=== PATIENT | male | born 1935 | race Caucasian/White ===

== ENCOUNTER 2017-05-27 15:40 | Outpatient (CLI) | payer MEDICARE ==
[2017-05-27 17:00] LABS: Bilirubin Negative (Negative); Blood, Urine Negative (Negative); Glucose, Urine (Dipstick) Negative (Negative); Ketone, Urine Negative (Negative); Nitrite Negative (Negative); Protein, Urine (Dipstick) Trace mg/dL (Neg-Trace); Urobilinogen 0.2 mg/dL (0.2-1.0)
[2017-05-27 17:02] LABS: #Basophils 0.1 thou/uL (0.0-0.2); #Eosinphils 0.6 thou/uL (0.0-0.7); #Lymphocytes 2.9 thou/uL (1.20-3.40); #Monocytes 1.1 thou/uL (0.11-0.59); #Neutrophils 5.7 thou/uL (1.40-6.50); %Basophils 0.9 % (0.0-1.0); %Eosinophils 6.1 % (0.0-10.0); %Monocytes 10.4 % (0.0-10.0); Bacteria/HPF 1+ HPF (None Seen); Hematocrit 40.9 % (42.0-52.0); Hyaline Casts/LPF 0-3 HYALINE CAST LPF (0-3 Hyaline); Red Blood Cell (RBC) Count 4.48 mill/uL (4.70-6.10); Squamous Epithelial None Seen HPF (0-3); White Blood Cell (WBC) Count 10.5 thou/uL (4.8-10.8)
[2017-05-27 17:06] LABS: RBC/HPF None Seen HPF (0-3)
[2017-05-27 17:07] LABS: Prothrombin Time 14.4 SEC (12.0-14.7)
[2017-05-27 17:08] LABS: PTT 33.3 SEC (22.9-36.1)
[2017-05-27 17:25] LABS: Anion Gap 14 mmol/L (10-20); BUN (Urea Nitrogen) 25 mg/dL (8.4-25.7); Calc. Creatinine Clearance 0 mL/min (70-130); Calcium 9.4 mg/dL (7.8-10.44); Carbon Dioxide 22 mmol/L (23-31); Chloride 110 mmol/L (98-107); Estimated GFR-MDRD 58
--- NOTE | 2017-05-27 19:23 | RAD ---
HISTORY: Preoperative chest radiograph TWO VIEWS CHEST: 05/27/17 PA and lateral views of the chest is obtained on 05/27/17. Comparison made to previous exam of 11/18/05. Two views chest demonstrates a dual lead intracardiac pacing device. Cardiomegaly is seen. Calcificat ion of the aorta is noted. No evidence of effusions, pneumonia, or pneumothorax seen. IMPRESSION: Cardiomegaly. POS: [facility]
== END 2017-05-27 15:41 | disposition home or self-care (01) ==
LOC: LABBT 15:40
PROVIDERS: ATTEND Orthopaedic Surgery
DX: Z01.818 Encounter for other preprocedural examination (principal); T84.59XA Infection and inflammatory reaction due to other internal joint prosthesis, initial encounter
CPT/HCPCS: 71020; 80048; 81001; 85025; 85610; 85730; 86850; 86900; 86901; 87081

== ENCOUNTER 2017-05-27 16:00 | Inpatient (IN) | payer MEDICARE ==
[2017-05-27 15:51] VITALS: BMI 35.9
[2017-05-30] MEDS ORDERED: Tobramycin Sulfate 1.2 GM VIAL ONE (07:58)
[2017-05-30] MEDS ORDERED: EPINEPHrine 1 MG/ML AMP ONE (08:00)
[2017-05-30] MEDS ORDERED: Dexamethasone 4 mg/ml Vial ONE (08:01)
[2017-05-30] MEDS ORDERED: Fentanyl 100 MCG/2 ML VIAL ONE ×3 (08:10→13:07)
[2017-05-30] MEDS ORDERED: Midazolam HCl 2 mg/2 ml Vial ONE (08:10)
[2017-05-30] MEDS ORDERED: Tranexamic Acid 1,000 MG/100 ML BAG ONE (08:40)
[2017-05-30] MEDS ORDERED: Piperacillin/Tazobactam 3.375 GM in Sodium Chloride 0.9% 100 ML IVPB SCH (09:45)
[2017-05-30] MEDS ORDERED: Ondansetron HCl/PF 4 MG/2 ML Vial IVP PRN ×2 (11:23→11:29)
[2017-05-30] MEDS ORDERED: Promethazine HCl 25 MG/ML VIAL SLOW IVP PRN (11:23)
[2017-05-30] MEDS ORDERED: Promethazine HCl 25 MG/ML VIAL IM PRN ×2 (11:23→11:29)
[2017-05-30] MEDS ORDERED: diphenhydrAMINE 25 MG CAP PO PRN (11:29)
[2017-05-30] MEDS ORDERED: Fentanyl 100 MCG/2 ML VIAL SLOW IVP PRN ×2 (11:29)
[2017-05-30] MEDS ORDERED: Zolpidem Tartrate 5 MG TAB PO PRN (11:29)
[2017-05-30] MEDS ORDERED: HYDROcodone/Acetaminophen 10/325 mg Tablet PO PRN (11:29)
[2017-05-30] MEDS ORDERED: Acetaminophen 325 MG TAB PO PRN (11:29)
[2017-05-30] MEDS ORDERED: Tranexamic Acid 1,000 MG in Sodium Chloride 0.9% 100 ML IVPB SCH (11:30)
[2017-05-30] MEDS ORDERED: HYDROmorphone 0.5 MG/0.5 ML SYRINGE ONE (13:06)
[2017-05-30] MEDS ORDERED: Bupivacaine HCl 0.5%/Epinephrine 1:200,000/PF 30 ml Vial ONE (14:56)
[2017-05-30] MEDS ORDERED: Bupivacaine PF 0.5% 30 ML VIAL ONE (14:56)
[2017-05-30] MEDS: cefTRIAXone\\ROCEPHIN 2 GM in Sodium Chloride 0.9% 100 ML IVPB SCH (15:43)
[2017-05-30] MEDS ORDERED: Ondansetron HCl/PF 4 MG/2 ML Vial ONE (15:50)
[2017-05-30] MEDS ORDERED: Propofol 200 MG/20 ML VIAL ONE (15:50)
[2017-05-30] MEDS ORDERED: ePHEDrine/0.9% NaCl/PF SYRINGE 50 mg/10 ml ONE (15:50)
[2017-05-30] MEDS ORDERED: Dextrose 5% in Water 1,000 ML IV PRN (16:08)
[2017-05-30] MEDS ORDERED: Dextrose 50% Abboject 50 ML SYRINGE SLOW IVP PRN (16:08)
[2017-05-30] MEDS: Dextrose 5 %-0.45 % NaCl 1,000 ML IV SCH ×2 (16:22→21:42)
[2017-05-30] MEDS ORDERED: Non-Formulary Item 1 EACH (Azelastine/Fluticasone [Dymista Nasal Spray] 1 SPRAY) EA NARE SCH (21:00)
[2017-05-30] MEDS ORDERED: Aspirin 325 MG TAB PO SCH (21:00)
[2017-05-30] MEDS: Ferrous Gluconate 324 MG TAB PO SCH (21:38)
[2017-05-30] MEDS: Tamsulosin HCl 0.4 MG CAP PO SCH (21:40)
[2017-05-30] MEDS: Rosuvastatin 20 MG TAB PO SCH (21:40)
[2017-05-30] MEDS: Senokot S 8.6-50 MG TAB PO SCH (21:40)
[2017-05-30] MEDS: Vancomycin HCl 1.25 GM in Sodium Chloride 0.9% 250 ML 250 ML IVPB SCH (21:41)
[2017-05-30] MEDS: Oxybutynin 5 MG TAB PO SCH (21:41)
[2017-05-30] MEDS: Fluticasone Propionate Nasal Spray 16 gm Bottle NASAL SCH (21:42)
[2017-05-30] MEDS: Azelastine 137 MCG/Spray 30 ML NS SCH (21:42)
[2017-05-31 05:30] LABS: Mean Corpuscular HGB CONC 32.3 g/dL (32.0-36.0); Mean Corpuscular Hemoglobin 29.8 pg (27.0-31.0); Mean Corpuscular Volume 92.4 fl (80.0-94.0); Mean Platelet Volume 9.3 fL (7.4-10.4); Platelet Count 118 thou/uL (130-400); RBC Distribution Width 13.2 % (11.5-14.5); Red Blood Cell (RBC) Count 3.68 mill/uL (4.70-6.10); White Blood Cell (WBC) Count 11.7 thou/uL (4.8-10.8)
[2017-05-31 06:01] LABS: Anion Gap 8 mmol/L (10-20); BUN (Urea Nitrogen) 21 mg/dL (8.4-25.7); Calc. Creatinine Clearance 85 mL/min (70-130); Carbon Dioxide 25 mmol/L (23-31); Chloride 111 mmol/L (98-107); Estimated GFR-MDRD 55; Glucose 237 mg/dL (83-110); Magnesium 1.7 mg/dL (1.6-2.6); Potassium 4.3 mmol/L (3.5-5.1); Sodium 140 mmol/L (136-145)
[2017-05-31] MEDS: Dextrose 5 %-0.45 % NaCl 1,000 ML IV SCH ×2 (06:01→17:12)
[2017-05-31] MEDS: Levothyroxine Sodium 75 MCG TAB PO SCH (06:01)
[2017-05-31] MEDS: Vancomycin HCl 1.25 GM in Sodium Chloride 0.9% 250 ML 250 ML IVPB SCH ×2 (08:38→21:03)
[2017-05-31] MEDS: Ferrous Gluconate 324 MG TAB PO SCH ×2 (08:42→20:30)
[2017-05-31] MEDS: Alogliptin 25 MG TAB PO SCH (08:42)
[2017-05-31] MEDS: Senokot S 8.6-50 MG TAB PO SCH ×2 (08:42→20:30)
[2017-05-31] MEDS: Finasteride 5 MG TAB PO SCH (08:43)
[2017-05-31] MEDS: Aspirin 81 mg Enteric Coated Tablet PO SCH (08:43)
[2017-05-31] MEDS: Multivitamin W/ Minerals 1 TAB PO SCH (08:43)
[2017-05-31] MEDS: Calcium Carbonate + Vit D 1 TAB PO SCH (08:43)
[2017-05-31] MEDS ORDERED: Non-Formulary Item 1 EACH (Multivit-Min/Fa/Lycopene/Lut [Centrum Silver] 1 TABLET) PO SCH (09:00)
--- NOTE | 2017-05-31 10:31 | PDOC.PN ---
- Subjective Encounter Start Date: 05/31/17 Encounter Start Time: 09:40 PT sen earlier on rounds. No overnight problems, states he hasnt had anything to eat. No F/C, no N/V/DC, no sweats or chills. no CP or SOB, slept with his CPAP last night 10 point ROS performed and neg for all systems except as per HPI. at bedside, questions answers. - Objective Vital Signs & Weight: Vital Signs (12 hours) Temp Pulse Resp BP Pulse Ox 05/31/17 07:29 98.4 F 60 19 05/31/17 07:20 98 F 64 18 124/66 93 L 05/31/17 04:00 98.4 F 60 19 109/63 92 L 05/31/17 00:00 97.8 F 63 18 131/64 94 L Weight Weight 287 lb I&O: 05/30/17 05/31/17 06/01/17 06:59 06:59 06:59 Intake Total 1440 Output Total 750 Balance 690 Result Diagrams: 05/31/17 04:59 05/31/17 04:59 Additional Labs: Accuchecks 05/31/17 05/30/17 05:13 20:14 POC Glucose 219 H 263 H Phys Exam - Physical Examination Constitutional: NAD HEENT: PERRLA, moist MMs, sclera anicteric, oral pharynx no lesions Neck: no nodes, no JVD, supple, full ROM Respiratory: no wheezing, no rales, no rhonchi, clear to auscultation bilateral Cardiovascular: RRR, no significant murmur, no rub Gastrointestinal: soft, non-tender, no distention, positive bowel sounds Musculoskeletal: pulses present, edema present Neurological: non-focal, normal sensation, moves all 4 limbs Lymphatic: no nodes Psychiatric: normal affect, A&O x 3 Skin: no rash, normal turgor, cap refill <2 seconds Dx/Plan (1) HTN (hypertension) Code(s): I10 - ESSENTIAL (PRIMARY) HYPERTENSION Status: Chronic Qualifiers: Hypertension type: essential hypertension Qualified Code(s): I10 - Essential (primary) hypertension Comment: pt states he had before, BP normal now, not on Rx. CCM and monitor (2) PUD (peptic ulcer disease) Code(s): K27.9 - PEPTIC ULC, SITE UNSP, UNSP AC OR CHR, W/O HEMOR OR PERF Status: Chronic Comment: massive bleed requiring surgical oversew in past. GI prophylaxis (3) DM2 (diabetes mellitus, type 2) Status: Chronic Qualifiers: Diabetes mellitus complication status: without complication Diabetes mellitus halfway insulin use: without halfway use Qualified Code(s): E11.9 - Type 2 diabetes mellitus without complications (4) Infection of prosthetic knee joint Code(s): T84.59XA - INFECT/INFLM REACTION DUE TO OTH INTERNAL JOINT PROSTH, INIT ; Z96.659 - PRESENCE OF UNSPECIFIED ARTIFICIAL KNEE JOINT Status: Acute Qualifiers: Encounter type: initial encounter Qualified Code(s): T84.59XA - Infection and inflammatory reaction due to other internal joint prosthesis, initial encounter; Z96.659 - Presence of unspecified artificial knee joint; Z96.659 - Presence of unspecified artificial knee joint Comment: s/p [address] Magana. Tissue cx, fluid cx, and swab cx sent, all neg overnight. Only fluid Grams Stain positive, revelaing GPC in clusters. Vanc (5) SEVEN (obstructive sleep apnea) Code(s): G47.33 - OBSTRUCTIVE SLEEP APNEA (ADULT) (PEDIATRIC) Status: Chronic Comment: home CPAP (6) Knee arthropathy Code(s): M12.9 - ARTHROPATHY, UNSPECIFIED Status: Acute - Plan cont current plan of care, plan discussed w/ family, continue antibiotics, PT/OT , out of bed/ambulate * .
--- NOTE | 2017-05-31 10:43 | PRG ---
DATE OF SERVICE: 05/31/2017 SUBJECTIVE: Demar is an 82-year-old male, who is postoperative day #1 from a single-stage revision left total knee arthroplasty due to infection. He is doing relatively well. He has very little in the way of complaints. No definitive cultures have returned yet. There is a question of gram-positi ve cocci on microscopy and Gram stain. He has been relatively stable overnight. OBJECTIVE: VITAL SIGNS: Temperature 98.4, pulse 60, respiratory rate is 19, blood pressure is 124/66. GENERAL: He is alert and oriented to person, place, time, and situation, and appropriate and respons charlie to examiner. Pain appears to be under good control. EXTREMITIES: He is neurovascularly intact in left lower extremity. No strike through is noted. LABORATORY EVALUATION: White blood cell count was 11.7, hemoglobin 11.0, hematocrit 34.0. Cultures are still pending definitively. ASSESSMENT: An 82-year-old male postoperative day revision single-stage left total knee arthroplasty due to an infection. PLAN: 1. Continue current management. 2. Dr. Allan' evaluation is pending. 3. Wound care will see the patient later this afternoon for a VAC placement. 4. Follow cultures, treat appropriately.
[2017-05-31] MEDS: cefTRIAXone\\ROCEPHIN 2 GM in Sodium Chloride 0.9% 100 ML IVPB SCH (12:37)
[2017-05-31] MEDS: Fluticasone Propionate Nasal Spray 16 gm Bottle NASAL SCH ×2 (12:38→20:31)
[2017-05-31] MEDS: Azelastine 137 MCG/Spray 30 ML NS SCH ×2 (12:39→20:31)
--- NOTE | 2017-05-31 13:58 | PRG ---
DATE OF SERVICE: 05/31/2017 SUBJECTIVE: Today is postop day #1 after resection and placement of a new total knee, basically a 1- stage revision with cemented implants. Today, he is doing quite well. He has got excellent pain rel ief with his block. He has only a scant drainage today. As ordered, a wound VAC has been placed. M icrobiology shows gram-positive cocci in clusters and cultures are still pending at this time. ASSESSMENT: Chronically infected left total knee. PLAN: At this time is as follows. A wound VAC until the sinus tract closes. IV antibiotics. Discu ssed with Dr. Allan. He is on vancomycin and Zosyn. Also, patient will be switched to a consistent carbohydrate diet. Discussed with Dr. Bañuelos today. A PICC line was ordered by myself, and 2 views of the knee will be obtained for routine documentation purposes while in the department for his PICC line.
--- NOTE | 2017-05-31 14:10 | CON ---
DATE OF CONSULTATION: 05/30/2017 INITIAL INPATIENT CONSULT NOTE TIME OF VISIT: 1500 hours. REQUESTING PHYSICIAN: Dimas Magana M.D. REASON FOR CONSULTATION: Medical management status post revision of left total knee arthroplasty due to infection. Patient has multiple comorbidities including sleep apnea, hypertension, atrial arrhythmias, diabetes, GERD, and BPH. Patient had a knee replacement initially back in 09/2013. He has had issues with skin breakdown and drainage from the same knee and conservative management. He is also referred to Dr. Magana, and was noted to have a skin breakdown and drainage from the wound. Cultures were not obtained prior to admission. The patient was admitted postoperative from left knee hardware removal and replacement and stage I procedure and cultures were sent from the fluid, tissue , and swab at the time of surgery. Postoperatively, he is doing well. Denies any fevers or chills, chest pain or shortness of breath, n o nausea or vomiting, no diarrhea or constipation. PAST MEDICAL HISTORY: 1. Obstructive sleep apnea on CPAP, he did bring his own machine. 2. Hypertension, is under control. 3. Arrhythmias status post ablation x1. He sees Dr. David regularly. 4. Diabetes mellitus type 2. 5. GERD/peptic ulcer disease with a massive GI bleed back in 2003. He states he required 17 units o f blood transfusion. 6. BPH. PAST SURGICAL HISTORY: Includes bilateral cataracts, skin cancer removal, heart ablation, laparoscop ic cholecystectomy, intraoperative cholangiogram back in 09/2015, ulnar nerve transposition in 7, TKA 09/2013. HOME MEDICATIONS: 1. Amoxicillin 2000 mg p.o. prior to dental procedures. 2. Aspirin 81 mg daily. 3. Azelastine fluticasone 20 mg spray 1 spray each naris daily. 4. Calcium plus D3 1500/250 1 tablet daily. 5. Plavix 75 mg daily. 6. Cyanocobalamin 5000 mcg daily. 7. Glucosamine chondroitin 2 tablets daily. 8. Dexlansoprazole 60 mg p.o. at bedtime. 9. Proscar 5 mg p.o. daily. 10. Levothyroxine 75 mcg daily. 11. Centrum Silver 1 tablet daily. 12. Oxybutynin 2 tablets p.o. q.p.m. 13. Crestor 20 mg p.o. at bedtime. 14. Januvia 50 mg p.o. q.a.m. 15. Flomax 0.4 mg p.o. at bedtime. ALLERGIES: NKDA. FAMILY HISTORY: Significant for diabetes, hypertension, and strokes. SOCIAL HISTORY: Negative for habits x3. He is . His accompanies him. REVIEW OF SYSTEMS: A 10-point review of systems was performed and was negative for all other systems except as stated per HPI. PHYSICAL EXAMINATION: VITAL SIGNS: Temperature current 97.5, pulse 68, blood pressure 110/63, respiratory rate 20, satting 93% on 2 liters nasal cannula. GENERAL: He is awake. He is alert. He is oriented x3. He is an obese white male, appears to be in no acute distress. HEENT: Normocephalic, atraumatic. Pupils are equal and reactive bilaterally. Mucous membranes are moist. There is no visible lesion and no thrush. NECK: Supple, without lymphadenopathy, JVD or thyromegaly. LUNGS: Clear to auscultation bilaterally without wheezes, rales or rhonchi. He has no prolonged exp iratory phase. He has good air movement. Symmetrical chest excursion. CARDIOVASCULAR: Normal S1 and S2. No S3 or S4. He has a regular rhythm with a normal rate. He has no murmurs. ABDOMEN: Obese, it is nontender, and nondistended. He has good bowel sounds present. There is no r ebound, rigidity or guarding. EXTREMITIES: There is no cyanosis or clubbing. There is trace bilateral lower extremity edema, more than the left than the right. He has a postop dressing present over his left knee and that is clean , dry, and intact. SKIN: Otherwise, warm, moist, and well perfused. He has no other rashes and no lesions. NEUROLOGIC: Cranial nerves II-XII grossly intact. He has no focal deficits, normal speech, and 5/5 strength. MUSCULOSKELETAL: Other than that left knee shows joints to be normal to inspection. He has no infla mmation or redness and no palpable effusions. LABORATORY DATA: On 05/27/2017 he had a basic metabolic profile that was normal. Creatinine 1.21, p otassium 4.5, glucose 146 and calcium 9.4. Urinalysis that did show greater than 50 white blood cell s, 1+ bacteria and moderate leukocyte esterase. INR 1.1. CBC showed white count of 10.5, hemoglobin 13.1, hematocrit of 40.7 and platelets 153,000. MICROBIOLOGIC DATA: He had knee tissue culture sent with Gram stain that showed white cells and no o rganisms, fluid showed rare gram positive cocci in clusters and white blood cells, swab showed no whi te blood cells, no bacteria. Cultures have been sent. ASSESSMENT AND PLAN: 1. Infected left total knee arthroplasty, late onset and patient had symptoms longer than 2 weeks. The patient had a 1 staged procedure as he was not a good candidate for two stage. This does tend to be truly infected, at least 6-8 weeks of IV antibiotics. C-reactive protein is just over 1, sed rat e was not done and we will add. Would treat for a minimum of 6 weeks. If sed rate and CRP are gay l by then and then convert to p.o. antibiotics, otherwise continue IV antibiotics to complete an 8-we ek course before switching to p.o. 2. After IV is complete, we will treat for 3-6 months with oral antibiotics depending on the identif ication and susceptibilities. 3. Status post 1 stage revision. Postop care per Orthopedics including deep venous thrombosis proph ylaxis. 4. History of obstructive sleep apnea: Continue home continuous positive airway pressure. 5. History of hypertension: The patient states it is controlled and off medications. We will monit or here in the hospital. 6. History of atrial arrhythmia followed by Dr. David. His preop workup revealed nothing abnormal. 7. Diabetes mellitus type 2, glucose 146 on prescreening labs: We will watch his sugars here. 8. Gastroesophageal reflux disease/peptic ulcer disease. We will continue his dexlansoprazole for g astrointestinal prophylaxis. 9. History of BPH on Proscar and Flomax, which we will continue. 10. Hyperlipidemia on Crestor, which can continue. 11. residential monitoring of antibiotics: If he again does start to have an infection, will need mesha g-term IV antibiotics. We will need weekly CBC, CMP, ESR, and CRP and vancomycin if it turns out to need vancomycin for treatment.
--- NOTE | 2017-05-31 15:43 | CON ---
DATE OF CONSULTATION: 05/31/2017 REASON FOR CONSULTATION: Left total knee replacement infection. HISTORY OF PRESENT ILLNESS: An 82-year-old with history of type 2 diabetes, Jaramillo's esophagus, atr ial fibrillation, sick sinus syndrome, pacemaker, and a prior left TKR implant, who developed progres sively worsening pain in the left implant site, and eventually was evaluated by Dr. Magana and had re moval of the left implant and had a functional spacer placed yesterday. The patient currently denies any headaches, visual symptoms, sore throat, odynophagia, dysphagia. No cough or sputum production or chest pain. Moderate pain in the left side. No back pain. No other joint symptoms. 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 PAST SURGICAL HISTORY: Includes appendectomy, tonsillectomy, left knee replacement, and now the archie naresh of the implant, wound VAC placement, duodenostomy. ALLERGIES: None. FAMILY HISTORY: Noncontributory. SOCIAL HISTORY: He used to work for [employer], he is retired, lives in [place], . Never a smo ker. CURRENT MEDICATIONS: Alogliptin, [place], Ecotrin, azelastine, ceftriaxone, fentanyl, insulin, levothy roxine, Zofran, Phenergan, vancomycin, Ambien. PHYSICAL EXAMINATION: VITAL SIGNS: The patient has been afebrile throughout the hospital stay. Blood pressure 119/69, pul se 62, respirations 18, O2 sat 94%. SKIN EXAM: The patient has a left implant site with dressing, which was not removed. Peripheral IV access. No Chow catheter. No lymphadenopathy. HEENT: Ocular movements are conjugate. Oral cavity still with quite a few teeth in place with some decay. No gum disease. NECK: Supple, no jugular venous distention or carotid bruits. LUNGS: Clear to auscultation and percussion. HEART: S1, S2, regular rate. No S3 or S4. ABDOMEN: Soft, not distended, or tender. No ascites. No bladder distention. EXTREMITIES: No other joint inflammatory activity noted. Pulses are 1+ in dorsalis pedis. Plantar responses are flexor. No clonus. NEUROLOGIC: Cognitive function appears to be intact. LABORATORY DATA: White cell count 11.7, hemoglobin 11, MCV 92, platelets 119, and sodium 140, creati nine 1.25, which is a little bit higher than his baseline in 09/2015 when it was 0.98. Microbiology with gram-positive cocci in clusters identified in one sample, and the other sample from the knee, th ere is early growth, but not yet identified. Pathology of surgical specimen pending. ASSESSMENT: Type 2 diabetes with prior implants in left knee with infection, status post removal of the implant and placement of a functional spacer. Waiting on culture results. DISCUSSION: Patient will have a PICC line inserted and plan treatment for 42 days with antimicrobial to be decided once we have the final identification of the organism. Since this is a functional imp lant and will remain in place, plan to continue treatment for 3 months with oral regimen, again to be decided by the susceptibility studies being performed in the organisms isolated from the sample. PI CC line placement and we have discussed potential adverse reactions from the PICC line as well as the antimicrobials including skin rash, diarrhea, kidney, liver, and bone marrow toxicity. The patient and understood and agreed with management and recommendations.
[2017-05-31] MEDS: HYDROcodone/Acetaminophen 10/325 mg Tablet PO PRN (17:03)
[2017-05-31] MEDS: Tamsulosin HCl 0.4 MG CAP PO SCH (20:30)
[2017-05-31] MEDS: Rosuvastatin 20 MG TAB PO SCH (20:30)
[2017-05-31] MEDS: Oxybutynin 5 MG TAB PO SCH (20:30)
[2017-05-31 20:45] LABS: Vancomycin, Trough 17.8 ug/mL
[2017-06-01] MEDS: Dextrose 5 %-0.45 % NaCl 1,000 ML IV SCH ×3 (03:48→23:01)
[2017-06-01 05:11] LABS: Mean Corpuscular HGB CONC 32.4 g/dL (32.0-36.0); Mean Corpuscular Hemoglobin 30.1 pg (27.0-31.0); Mean Corpuscular Volume 93.1 fl (80.0-94.0); Mean Platelet Volume 9.9 fL (7.4-10.4); Platelet Count 103 thou/uL (130-400); RBC Distribution Width 13.3 % (11.5-14.5); Red Blood Cell (RBC) Count 3.64 mill/uL (4.70-6.10); White Blood Cell (WBC) Count 12.6 thou/uL (4.8-10.8)
[2017-06-01] MEDS: Levothyroxine Sodium 75 MCG TAB PO SCH (05:32)
[2017-06-01] MEDS: Vancomycin HCl 1.25 GM in Sodium Chloride 0.9% 250 ML 250 ML IVPB SCH ×2 (08:58→21:02)
[2017-06-01] MEDS: Alogliptin 25 MG TAB PO SCH (09:00)
[2017-06-01] MEDS: Aspirin 81 mg Enteric Coated Tablet PO SCH (09:02)
[2017-06-01] MEDS: Azelastine 137 MCG/Spray 30 ML NS SCH ×2 (09:02→21:02)
[2017-06-01] MEDS: Calcium Carbonate + Vit D 1 TAB PO SCH (09:02)
[2017-06-01] MEDS: Ferrous Gluconate 324 MG TAB PO SCH ×2 (09:02→21:04)
[2017-06-01] MEDS: Finasteride 5 MG TAB PO SCH (09:03)
[2017-06-01] MEDS: Multivitamin W/ Minerals 1 TAB PO SCH (09:03)
[2017-06-01] MEDS: Senokot S 8.6-50 MG TAB PO SCH ×2 (09:03→21:03)
[2017-06-01] MEDS: Fluticasone Propionate Nasal Spray 16 gm Bottle NASAL SCH ×2 (09:04→21:04)
--- NOTE | 2017-06-01 11:11 | PDOC.PN ---
- Subjective Encounter Start Date: 06/01/17 Encounter Start Time: 09:40 Pt getting up with PT. no acute overnight events, no new compalints. Deneis F/C, no N/V/D/C, no CP or sOB. glucoses up, refused SSI with Humalog. seen by ID. plan reviewed. Culture in lab with early growth yesterday afternoon 10 point ROs performed and neg for all systems except as per HPI - Objective MAR Reviewed: Yes Vital Signs & Weight: Vital Signs (12 hours) Temp Pulse Resp BP Pulse Ox 06/01/17 08:00 98.4 F 63 18 133/69 92 L 06/01/17 07:45 98.4 F 63 18 06/01/17 03:43 98.1 F 58 L 16 148/83 H 94 L 05/31/17 23:49 99.4 F 56 L 20 119/73 98 Weight Admit Weight 287 lb Weight 287 lb I&O: 05/31/17 06/01/17 06/02/17 06:59 06:59 06:59 Intake Total 1440 600 240 Output Total 750 800 Balance 690 -200 240 Result Diagrams: 06/01/17 04:04 05/31/17 04:59 Additional Labs: Accuchecks 06/01/17 05/31/17 05/31/17 05:33 20:38 15:42 POC Glucose 171 H 200 H 198 H 05/31/17 12:08 POC Glucose 199 H Radiology Reviewed by me: No EKG Reviewed by me: No Phys Exam - Physical Examination Constitutional: NAD HEENT: PERRLA, moist MMs, sclera anicteric, oral pharynx no lesions Neck: no nodes, no JVD, supple, full ROM Respiratory: no wheezing, no rales, no rhonchi, clear to auscultation bilateral Cardiovascular: RRR, no significant murmur, no rub Gastrointestinal: soft, non-tender, no distention, positive bowel sounds Musculoskeletal: pulses present, edema present Neurological: non-focal, normal sensation, moves all 4 limbs left leg in long splint. Lymphatic: no nodes Psychiatric: normal affect, A&O x 3 Skin: no rash, normal turgor, cap refill <2 seconds Dx/Plan (1) HTN (hypertension) Code(s): I10 - ESSENTIAL (PRIMARY) HYPERTENSION Status: Chronic Qualifiers: Hypertension type: essential hypertension Qualified Code(s): I10 - Essential (primary) hypertension Comment: pt states he had before, BP normal now, not on Rx. CCM and monitor (2) PUD (peptic ulcer disease) Code(s): K27.9 - PEPTIC ULC, SITE UNSP, UNSP AC OR CHR, W/O HEMOR OR PERF Status: Chronic Comment: massive bleed requiring surgical oversew in past. GI prophylaxis (3) DM2 (diabetes mellitus, type 2) Status: Chronic Qualifiers: Diabetes mellitus complication status: without complication Diabetes mellitus terminal carman insulin use: without terminal carman use Qualified Code(s): E11.9 - Type 2 diabetes mellitus without complications Comment: SSI ordered, pt refusing. noted. (4) Infection of prosthetic knee joint Code(s): T84.59XA - INFECT/INFLM REACTION DUE TO OTH INTERNAL JOINT PROSTH, INIT ; Z96.659 - PRESENCE OF UNSPECIFIED ARTIFICIAL KNEE JOINT Status: Acute Qualifiers: Encounter type: initial encounter Qualified Code(s): T84.59XA - Infection and inflammatory reaction due to other internal joint prosthesis, initial encounter; Z96.659 - Presence of unspecified artificial knee joint; Z96.659 - Presence of unspecified artificial knee joint Comment: s/p [address] Magana. Tissue cx, fluid cx, and swab cx sent, one with early growth per Dr Allan. Only fluid Gram Stain positive, revealing GPC in clusters. Vanc (5) SEVEN (obstructive sleep apnea) Code(s): G47.33 - OBSTRUCTIVE SLEEP APNEA (ADULT) (PEDIATRIC) Status: Chronic Comment: home CPAP (6) Knee arthropathy Code(s): M12.9 - ARTHROPATHY, UNSPECIFIED Status: Acute - Plan cont current plan of care, plan discussed w/ family, continue antibiotics, PT/OT , out of bed/ambulate * . tissue cx with broth growth, subculture in process, fluid culture iwth rare growth, subbed out
[2017-06-01] MEDS: cefTRIAXone\\ROCEPHIN 2 GM in Sodium Chloride 0.9% 100 ML IVPB SCH (12:09)
[2017-06-01] MEDS: HYDROcodone/Acetaminophen 10/325 mg Tablet PO PRN (12:57)
[2017-06-01] MEDS: HumaLOG 300 UNITS/3 ML VIAL SC PRN ×3 (12:59→21:25)
[2017-06-01] MEDS: Tamsulosin HCl 0.4 MG CAP PO SCH (21:03)
[2017-06-01] MEDS: Rosuvastatin 20 MG TAB PO SCH (21:03)
[2017-06-01] MEDS: Oxybutynin 5 MG TAB PO SCH (21:03)
[2017-06-02 05:13] LABS: Hemoglobin 10.8 g/dL (14.0-18.0); Mean Corpuscular HGB CONC 32.4 g/dL (32.0-36.0); Mean Corpuscular Hemoglobin 29.8 pg (27.0-31.0); Mean Platelet Volume 9.5 fL (7.4-10.4); Platelet Count 107 thou/uL (130-400); RBC Distribution Width 13.3 % (11.5-14.5); Red Blood Cell (RBC) Count 3.63 mill/uL (4.70-6.10); White Blood Cell (WBC) Count 11.1 thou/uL (4.8-10.8)
[2017-06-02] MEDS: Levothyroxine Sodium 75 MCG TAB PO SCH (05:39)
[2017-06-02] MEDS: HYDROcodone/Acetaminophen 10/325 mg Tablet PO PRN (05:39)
[2017-06-02] MEDS: HumaLOG 300 UNITS/3 ML VIAL SC PRN (07:57)
[2017-06-02] MEDS: Alogliptin 25 MG TAB PO SCH (07:57)
[2017-06-02] MEDS: Calcium Carbonate + Vit D 1 TAB PO SCH (07:58)
[2017-06-02] MEDS: Senokot S 8.6-50 MG TAB PO SCH ×2 (07:58→23:01)
[2017-06-02] MEDS: Finasteride 5 MG TAB PO SCH (07:58)
[2017-06-02] MEDS: Ferrous Gluconate 324 MG TAB PO SCH ×2 (07:58→20:18)
[2017-06-02] MEDS: Aspirin 81 mg Enteric Coated Tablet PO SCH (07:58)
[2017-06-02] MEDS: Multivitamin W/ Minerals 1 TAB PO SCH (07:59)
[2017-06-02] MEDS: Azelastine 137 MCG/Spray 30 ML NS SCH ×2 (07:59→20:23)
[2017-06-02] MEDS: Fluticasone Propionate Nasal Spray 16 gm Bottle NASAL SCH ×3 (07:59→20:23)
[2017-06-02] MEDS: Vancomycin HCl 1.25 GM in Sodium Chloride 0.9% 250 ML 250 ML IVPB SCH ×2 (08:12→09:47)
[2017-06-02 08:52] LABS: Vancomycin, Trough 21.5 ug/mL
[2017-06-02] MEDS: Vancomycin HCl 1 GM in Premix Bag 1 BAG IVPB SCH ×2 (10:44→22:55)
[2017-06-02] MEDS ORDERED: Fleet Enema 133 ML BOT PR SCH (12:30)
--- NOTE | 2017-06-02 13:15 | PDOC.PN ---
- Subjective Encounter Start Date: 06/02/17 Encounter Start Time: 08:50 no events, PICC scheduled for today. awaiting culture results. Looks to be going to [facility] when discharged. ? today no F/C, no N/V/D/C, no CP or SOB. Still refusing SSI 10 point ROS performed and neg for all systems except as per HPI - Objective MAR Reviewed: Yes Vital Signs & Weight: Vital Signs (12 hours) Temp Pulse Resp BP Pulse Ox 06/02/17 11:05 98.8 F 61 20 131/57 L 90 L 06/02/17 07:20 98.7 F 61 12 134/69 91 L 06/02/17 04:00 97.9 F 60 18 137/74 92 L Weight Admit Weight 287 lb Weight 287 lb I&O: 06/01/17 06/02/17 06/03/17 06:59 06:59 06:59 Intake Total 600 2810 Output Total 800 875 Balance -200 1935 Result Diagrams: 06/02/17 04:32 05/31/17 04:59 Additional Labs: Accuchecks 06/02/17 06/02/17 06/01/17 11:02 06:18 21:06 POC Glucose 184 H 203 H 245 H 06/01/17 15:59 POC Glucose 215 H Phys Exam - Physical Examination Constitutional: NAD HEENT: PERRLA, moist MMs, sclera anicteric, oral pharynx no lesions Neck: no nodes, no JVD, supple, full ROM Respiratory: no wheezing, no rales, no rhonchi, clear to auscultation bilateral Cardiovascular: RRR, no significant murmur, no rub Gastrointestinal: soft, non-tender, no distention, positive bowel sounds Musculoskeletal: pulses present, edema present Neurological: non-focal, normal sensation, moves all 4 limbs Lymphatic: no nodes Psychiatric: normal affect, A&O x 3 Skin: no rash, normal turgor, cap refill <2 seconds Dx/Plan (1) HTN (hypertension) Code(s): I10 - ESSENTIAL (PRIMARY) HYPERTENSION Status: Chronic Qualifiers: Hypertension type: essential hypertension Qualified Code(s): I10 - Essential (primary) hypertension Comment: pt states he had before, BP normal now, not on Rx. CCM and monitor (2) PUD (peptic ulcer disease) Code(s): K27.9 - PEPTIC ULC, SITE UNSP, UNSP AC OR CHR, W/O HEMOR OR PERF Status: Chronic Comment: massive bleed requiring surgical oversew in past. GI prophylaxis (3) DM2 (diabetes mellitus, type 2) Status: Chronic Qualifiers: Diabetes mellitus complication status: without complication Diabetes mellitus middle or intermediate school principal insulin use: without middle or intermediate school principal use Qualified Code(s): E11.9 - Type 2 diabetes mellitus without complications Comment: SSI ordered, pt refusing. noted. (4) Infection of prosthetic knee joint Code(s): T84.59XA - INFECT/INFLM REACTION DUE TO OTH INTERNAL JOINT PROSTH, INIT ; Z96.659 - PRESENCE OF UNSPECIFIED ARTIFICIAL KNEE JOINT Status: Acute Qualifiers: Encounter type: initial encounter Qualified Code(s): T84.59XA - Infection and inflammatory reaction due to other internal joint prosthesis, initial encounter; Z96.659 - Presence of unspecified artificial knee joint; Z96.659 - Presence of unspecified artificial knee joint Comment: s/p [address] Magana. Tissue cx, fluid cx, and swab cx sent, one with growth of GPC from tissue. Only fluid Gram Stain positive, revealing GPC in clusters. Vanc (5) SEVEN (obstructive sleep apnea) Code(s): G47.33 - OBSTRUCTIVE SLEEP APNEA (ADULT) (PEDIATRIC) Status: Chronic Comment: home CPAP (6) Knee arthropathy Code(s): M12.9 - ARTHROPATHY, UNSPECIFIED Status: Acute - Plan cont current plan of care, continue antibiotics, PT/OT, social work case manager, out of bed/ambulate * .
[2017-06-02] MEDS: cefTRIAXone\\ROCEPHIN 2 GM in Sodium Chloride 0.9% 100 ML IVPB SCH (16:18)
--- NOTE | 2017-06-02 16:46 | RAD ---
LEFT KNEE TWO VIEWS: History: Left knee replacement. FINDINGS: Post-operative changes are present including a metallic femoral component and lucent tibial component . Joint space is preserved. Soft tissue gas, arterial calcification, and heterotopic calcification ar e apparent. IMPRESSION: 1. Left knee prosthesis is in good radiographic position. POS: [facility]
--- NOTE | 2017-06-02 18:25 | SPC ---
SONOGRAPHIC GUIDED RIGHT UPPER EXTREMITY PICC PLACEMENT: History: Knee infection. Need for long-term antibiotics. FINDINGS: After explaining the procedure and answering all questions the right upper extremity was prepped and draped in the usual sterile fashion. Sterile technique, buffered local anesthesia, sonographic guidan ce and a 22 gauge needle were used to carefully access the right brachial vein. Standard technique wa s then used to place the tip of a 5 [place] single lumen PICC so that the tip lies at the level of the right atrium. The catheter was flushed and secured externally. The patient tolerated the procedure w ell and was returned in unchanged condition. IMPRESSION: Technically successful right upper extremity PICC placement. Catheter is now ready for use. POS: [facility]
[2017-06-02] MEDS: Rosuvastatin 20 MG TAB PO SCH (20:18)
[2017-06-02] MEDS: Tamsulosin HCl 0.4 MG CAP PO SCH (20:18)
[2017-06-02] MEDS: Oxybutynin 5 MG TAB PO SCH (20:18)
[2017-06-02] MEDS: Dextrose 5 %-0.45 % NaCl 1,000 ML IV SCH ×2 (20:20→20:22)
--- NOTE | 2017-06-02 20:23 | PRG ---
DATE OF SERVICE: 05/31/2017 SUBJECTIVE: Having little bit of choking spells from trying to drink fluids and on almost recumbent position, otherwise no chest pain, no abdominal pain, voiding without difficulty. OBJECTIVE: VITAL SIGNS: He is afebrile, blood pressure 170/75, pulse 62, respirations 20 to 22, O2 sat 92%. RESPIRATORY: Coughing intermittently. Faint expiratory wheezing. HEART: S1, S2, regular rate. ABDOMEN: Soft. Not distended. GENITOURINARY: No Chow catheter. EXTREMITIES: A 2+ edema in the left lower extremity. LABORATORY DATA: White cell count 11.1, hemoglobin 10.8, platelets 107,000. Creatinine 1.25, potass ium 4.3, glucose 171. Vancomycin trough 21.5, currently on ceftriaxone and vancomycin. Vancomycin d ose has been adjusted to 1 gram q.12 hours. Microbiology with gram positive cocci retrieved from the knee tissue yet to be fully identified, susceptibility tested. 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 Continue Rocephin and vancomycin, ad just dosage according to the trough level of 15 to 20. Wait on the final identification susceptibili ty profile and eventually probably go on rifampin combination with either vancomycin or cefazolin or Rocephin for 42 days. May remain with his functional spacer indefinitely or have revision depending on patient's and orthopedic surgeon's preference.
[2017-06-03] MEDS: Levothyroxine Sodium 75 MCG TAB PO SCH (05:18)
[2017-06-03 05:29] LABS: Hemoglobin 11.1 g/dL (14.0-18.0); Mean Corpuscular HGB CONC 32.7 g/dL (32.0-36.0); Mean Corpuscular Hemoglobin 29.6 pg (27.0-31.0); Mean Corpuscular Volume 90.6 fl (80.0-94.0); Mean Platelet Volume 9.6 fL (7.4-10.4); Platelet Count 129 thou/uL (130-400); Red Blood Cell (RBC) Count 3.75 mill/uL (4.70-6.10); White Blood Cell (WBC) Count 13.1 thou/uL (4.8-10.8)
[2017-06-03] MEDS: Dextrose 5 %-0.45 % NaCl 1,000 ML IV SCH ×2 (05:31→21:05)
[2017-06-03] MEDS: Fluticasone Propionate Nasal Spray 16 gm Bottle NASAL SCH ×2 (09:26→20:59)
[2017-06-03] MEDS: Calcium Carbonate + Vit D 1 TAB PO SCH (09:33)
[2017-06-03] MEDS: Ferrous Gluconate 324 MG TAB PO SCH ×2 (09:33→20:56)
[2017-06-03] MEDS: Finasteride 5 MG TAB PO SCH (09:33)
[2017-06-03] MEDS: Multivitamin W/ Minerals 1 TAB PO SCH (09:33)
[2017-06-03] MEDS: Senokot S 8.6-50 MG TAB PO SCH ×2 (09:33→20:57)
[2017-06-03] MEDS: Alogliptin 25 MG TAB PO SCH (09:33)
[2017-06-03] MEDS: Aspirin 81 mg Enteric Coated Tablet PO SCH (09:34)
[2017-06-03] MEDS: Azelastine 137 MCG/Spray 30 ML NS SCH ×2 (09:34→20:58)
[2017-06-03] MEDS: HYDROcodone/Acetaminophen 10/325 mg Tablet PO PRN ×2 (09:34→13:54)
[2017-06-03] MEDS: Vancomycin HCl 1 GM in Premix Bag 1 BAG IVPB SCH ×2 (09:35→22:26)
--- NOTE | 2017-06-03 11:28 | PDOC.PN ---
- Subjective Encounter Start Date: 06/03/17 Encounter Start Time: 10:10 PT in bed, has friends visiting, denies F/C,no n/V/d/C, no CP or ADRIANO, feels like he is constantly getting bothered by staff 10 point DOM performed and neg for all systems except as per hPI Cx pending, ID and sensitivities, ID note reviewed. - Objective MAR Reviewed: Yes Vital Signs & Weight: Vital Signs (12 hours) Temp Pulse Resp BP Pulse Ox 06/03/17 07:35 97.8 F 61 18 166/90 H 93 L 06/03/17 04:00 97.6 F 87 20 148/86 H 89 L 06/03/17 00:19 100.4 F H 62 20 132/87 89 L Weight Admit Weight 287 lb Weight 287 lb I&O: 06/02/17 06/03/17 06/04/17 06:59 06:59 06:59 Intake Total 2810 1636 Output Total 875 400 Balance 1935 1236 Result Diagrams: 06/03/17 04:55 05/31/17 04:59 Additional Labs: Accuchecks 06/03/17 06/03/17 06/02/17 11:02 05:22 19:35 POC Glucose 262 H 201 H 200 H 06/02/17 06/02/17 16:05 11:02 POC Glucose 160 H 184 H Radiology Reviewed by me: Yes Phys Exam - Physical Examination Constitutional: NAD HEENT: PERRLA, moist MMs, sclera anicteric, oral pharynx no lesions Neck: no nodes, no JVD, supple, full ROM Respiratory: no wheezing, no rales, no rhonchi, clear to auscultation bilateral Cardiovascular: RRR, no significant murmur, no rub Gastrointestinal: soft, non-tender, no distention, positive bowel sounds Musculoskeletal: pulses present, edema present Neurological: non-focal, normal sensation, moves all 4 limbs Lymphatic: no nodes Psychiatric: normal affect, A&O x 3 Skin: no rash, normal turgor, cap refill <2 seconds Dx/Plan (1) HTN (hypertension) Code(s): I10 - ESSENTIAL (PRIMARY) HYPERTENSION Status: Chronic Qualifiers: Hypertension type: essential hypertension Qualified Code(s): I10 - Essential (primary) hypertension Comment: pt states he had before, BP normal now, not on Rx. CCM and monitor (2) PUD (peptic ulcer disease) Code(s): K27.9 - PEPTIC ULC, SITE UNSP, UNSP AC OR CHR, W/O HEMOR OR PERF Status: Chronic Comment: massive bleed requiring surgical oversew in past. GI prophylaxis (3) DM2 (diabetes mellitus, type 2) Status: Chronic Qualifiers: Diabetes mellitus complication status: without complication Diabetes mellitus data control clerk supervisor insulin use: without senior care use Qualified Code(s): E11.9 - Type 2 diabetes mellitus without complications Comment: SSI ordered, pt refusing. noted. (4) Infection of prosthetic knee joint Code(s): T84.59XA - INFECT/INFLM REACTION DUE TO OTH INTERNAL JOINT PROSTH, INIT ; Z96.659 - PRESENCE OF UNSPECIFIED ARTIFICIAL KNEE JOINT Status: Acute Qualifiers: Encounter type: initial encounter Qualified Code(s): T84.59XA - Infection and inflammatory reaction due to other internal joint prosthesis, initial encounter; Z96.659 - Presence of unspecified artificial knee joint; Z96.659 - Presence of unspecified artificial knee joint Comment: s/p [address] Magana. Tissue cx, fluid cx, and swab cx sent, one with growth of GPC from tissue. Only fluid Gram Stain positive, revealing GPC in clusters. Vanc (5) SEVEN (obstructive sleep apnea) Code(s): G47.33 - OBSTRUCTIVE SLEEP APNEA (ADULT) (PEDIATRIC) Status: Chronic Comment: home CPAP (6) Knee arthropathy Code(s): M12.9 - ARTHROPATHY, UNSPECIFIED Status: Acute - Plan * .
[2017-06-03] MEDS: HumaLOG 300 UNITS/3 ML VIAL SC PRN (12:35)
[2017-06-03] MEDS: cefTRIAXone\\ROCEPHIN 2 GM in Sodium Chloride 0.9% 100 ML IVPB SCH (13:56)
[2017-06-03] MEDS: Oxybutynin 5 MG TAB PO SCH (20:56)
[2017-06-03] MEDS: Rosuvastatin 20 MG TAB PO SCH (20:56)
[2017-06-03] MEDS: Tamsulosin HCl 0.4 MG CAP PO SCH (20:56)
[2017-06-04] MEDS: Dextrose 5 %-0.45 % NaCl 1,000 ML IV SCH ×3 (03:07→20:54)
[2017-06-04 05:15] LABS: Hemoglobin 11.9 g/dL (14.0-18.0); Mean Corpuscular HGB CONC 32.2 g/dL (32.0-36.0); Mean Corpuscular Hemoglobin 29.8 pg (27.0-31.0); Mean Corpuscular Volume 92.4 fl (80.0-94.0); Mean Platelet Volume 9.5 fL (7.4-10.4); Platelet Count 136 thou/uL (130-400); RBC Distribution Width 13.1 % (11.5-14.5); Red Blood Cell (RBC) Count 3.99 mill/uL (4.70-6.10); White Blood Cell (WBC) Count 12.3 thou/uL (4.8-10.8)
[2017-06-04] MEDS: Levothyroxine Sodium 75 MCG TAB PO SCH (05:24)
[2017-06-04] MEDS: HumaLOG 300 UNITS/3 ML VIAL SC PRN ×2 (06:21→21:15)
[2017-06-04] MEDS: traMADol HCl 50 MG TAB PO PRN (09:11)
[2017-06-04] MEDS: Ferrous Gluconate 324 MG TAB PO SCH ×2 (09:47→20:38)
[2017-06-04] MEDS: Aspirin 81 mg Enteric Coated Tablet PO SCH (09:47)
[2017-06-04] MEDS: Calcium Carbonate + Vit D 1 TAB PO SCH (09:47)
[2017-06-04] MEDS: Finasteride 5 MG TAB PO SCH (09:47)
[2017-06-04] MEDS: Alogliptin 25 MG TAB PO SCH (09:47)
[2017-06-04] MEDS: Multivitamin W/ Minerals 1 TAB PO SCH (09:47)
[2017-06-04] MEDS: Senokot S 8.6-50 MG TAB PO SCH ×2 (09:47→20:38)
[2017-06-04] MEDS: Vancomycin HCl 1 GM in Premix Bag 1 BAG IVPB SCH ×2 (09:50→22:14)
[2017-06-04] MEDS: Azelastine 137 MCG/Spray 30 ML NS SCH ×2 (09:50→20:37)
[2017-06-04] MEDS: Fluticasone Propionate Nasal Spray 16 gm Bottle NASAL SCH ×2 (09:50→20:39)
--- NOTE | 2017-06-04 14:50 | PDOC.PN ---
- Subjective Encounter Start Date: 06/04/17 Encounter Start Time: 11:20 no events, no complaint,s no F/C, no n/V/D/c. Cultures resulted with e faecium, sentitivities pending. Discussed with ID - they wuill start zyvox in case its VRe 10 point ROs performed and neg for all systems except as per HPI - Objective MAR Reviewed: Yes Vital Signs & Weight: Vital Signs (12 hours) Temp Pulse Resp BP Pulse Ox 06/04/17 11:03 98.4 F 60 18 136/71 91 L 06/04/17 08:00 98.3 F 60 18 06/04/17 07:27 98.3 F 60 18 152/79 H 91 L 06/04/17 04:07 98 F 62 20 150/90 H 93 L Weight Admit Weight 287 lb Weight 287 lb I&O: 06/03/17 06/04/17 06/05/17 06:59 06:59 06:59 Intake Total 1636 1840 Output Total 400 500 Balance 1236 1340 Result Diagrams: 06/04/17 04:10 05/31/17 04:59 Additional Labs: Accuchecks 06/04/17 06/04/17 06/03/17 11:04 05:47 20:40 POC Glucose 202 H 219 H 218 H 06/03/17 15:28 POC Glucose 206 H Phys Exam - Physical Examination Constitutional: NAD HEENT: PERRLA, moist MMs, sclera anicteric, oral pharynx no lesions Neck: no nodes, no JVD, supple, full ROM Respiratory: no wheezing, no rales, no rhonchi, clear to auscultation bilateral Cardiovascular: RRR, no significant murmur Gastrointestinal: soft, non-tender, no distention, positive bowel sounds Musculoskeletal: pulses present, edema present Neurological: non-focal, normal sensation, moves all 4 limbs Lymphatic: no nodes Psychiatric: normal affect, A&O x 3 Skin: no rash, normal turgor, cap refill <2 seconds Dx/Plan (1) HTN (hypertension) Code(s): I10 - ESSENTIAL (PRIMARY) HYPERTENSION Status: Chronic Qualifiers: Hypertension type: essential hypertension Qualified Code(s): I10 - Essential (primary) hypertension Comment: pt states he had before, BP normal now, not on Rx. CCM and monitor (2) PUD (peptic ulcer disease) Code(s): K27.9 - PEPTIC ULC, SITE UNSP, UNSP AC OR CHR, W/O HEMOR OR PERF Status: Chronic Comment: massive bleed requiring surgical oversew in past. GI prophylaxis (3) DM2 (diabetes mellitus, type 2) Status: Chronic Qualifiers: Diabetes mellitus complication status: without complication Diabetes mellitus residential insulin use: without rodent exterminator use Qualified Code(s): E11.9 - Type 2 diabetes mellitus without complications Comment: SSI ordered, pt refusing. noted. (4) Infection of prosthetic knee joint Code(s): T84.59XA - INFECT/INFLM REACTION DUE TO OTH INTERNAL JOINT PROSTH, INIT ; Z96.659 - PRESENCE OF UNSPECIFIED ARTIFICIAL KNEE JOINT Status: Acute Qualifiers: Encounter type: initial encounter Qualified Code(s): T84.59XA - Infection and inflammatory reaction due to other internal joint prosthesis, initial encounter; Z96.659 - Presence of unspecified artificial knee joint; Z96.659 - Presence of unspecified artificial knee joint Comment: s/p [address] Magana. Tissue cx, fluid cx, and swab cx sent, one with growth of GPC from tissue. Only fluid Gram Stain positive, revealing GPC in clusters. Vanc (5) SEVEN (obstructive sleep apnea) Code(s): G47.33 - OBSTRUCTIVE SLEEP APNEA (ADULT) (PEDIATRIC) Status: Chronic Comment: home CPAP (6) Knee arthropathy Code(s): M12.9 - ARTHROPATHY, UNSPECIFIED Status: Acute - Plan cont current plan of care, continue antibiotics, PT/OT, out of bed/ambulate * . stop rocephin, starrt zyvox, follow up on cultrues per ID. If it turns out to be VRE, may need to use Cubicin for the duration
[2017-06-04] MEDS ORDERED: Heparin 1,000 UNITS/ML VIAL ONE (14:57)
[2017-06-04] MEDS: Tamsulosin HCl 0.4 MG CAP PO SCH (20:38)
[2017-06-04] MEDS: Rosuvastatin 20 MG TAB PO SCH (20:38)
[2017-06-04] MEDS: Oxybutynin 5 MG TAB PO SCH (20:38)
[2017-06-04] MEDS: Linezolid 600 MG in Premix Bag 1 BAG IVPB SCH (20:39)
[2017-06-05 05:34] LABS: Hemoglobin 11.1 g/dL (14.0-18.0); Mean Corpuscular HGB CONC 32.9 g/dL (32.0-36.0); Mean Corpuscular Volume 91.2 fl (80.0-94.0); Mean Platelet Volume 9.5 fL (7.4-10.4); Platelet Count 133 thou/uL (130-400); Red Blood Cell (RBC) Count 3.71 mill/uL (4.70-6.10)
[2017-06-05] MEDS: Levothyroxine Sodium 75 MCG TAB PO SCH (05:35)
[2017-06-05] MEDS: HumaLOG 300 UNITS/3 ML VIAL SC PRN ×2 (06:01→21:40)
[2017-06-05 09:17] LABS: Vancomycin, Trough 23.2 ug/mL
[2017-06-05] MEDS ORDERED: Vancomycin HCl 750 MG in Sodium Chloride 0.9% 250 ML 250 ML IVPB SCH (10:00)
[2017-06-05] MEDS: Linezolid 600 MG in Premix Bag 1 BAG IVPB SCH ×2 (10:33→21:33)
[2017-06-05] MEDS: Calcium Carbonate + Vit D 1 TAB PO SCH (10:36)
[2017-06-05] MEDS: Senokot S 8.6-50 MG TAB PO SCH ×2 (10:36→21:30)
[2017-06-05] MEDS: Multivitamin W/ Minerals 1 TAB PO SCH (10:36)
[2017-06-05] MEDS: Finasteride 5 MG TAB PO SCH (10:37)
[2017-06-05] MEDS: Alogliptin 25 MG TAB PO SCH (10:37)
[2017-06-05] MEDS: Aspirin 81 mg Enteric Coated Tablet PO SCH (10:37)
[2017-06-05] MEDS: Ferrous Gluconate 324 MG TAB PO SCH ×2 (10:37→21:30)
[2017-06-05] MEDS: traMADol HCl 50 MG TAB PO PRN (10:43)
[2017-06-05] MEDS: Dextrose 5 %-0.45 % NaCl 1,000 ML IV SCH ×2 (10:48→15:23)
[2017-06-05] MEDS: Fluticasone Propionate Nasal Spray 16 gm Bottle NASAL SCH ×2 (10:48→21:29)
[2017-06-05] MEDS: Azelastine 137 MCG/Spray 30 ML NS SCH ×2 (10:48→21:29)
--- NOTE | 2017-06-05 12:02 | PDOC.PN ---
- Subjective Encounter Start Date: 06/05/17 Encounter Start Time: 09:15 -: old records requested/rev Notes reviewed, no events, no new complaints. awiaitng sensitivity, now all three specimens with e faecium. tolerating Zyvox , Vanc. No F/c, no N/V/D/C,no CP or SOB. 10 point ROS performed and neg for all except as stated above - Objective MAR Reviewed: Yes Vital Signs & Weight: Vital Signs (12 hours) Temp Pulse Resp BP Pulse Ox 06/05/17 11:51 98.1 F 60 18 146/79 H 96 06/05/17 08:03 98.1 F 62 20 161/86 H 92 L 06/05/17 04:57 97.7 F 64 22 H 155/88 H 92 L 06/05/17 00:28 97.9 F 65 18 162/92 H 92 L Weight Admit Weight 287 lb Weight 287 lb I&O: 06/04/17 06/05/17 06/06/17 06:59 06:59 06:59 Intake Total 1840 2120 Output Total 500 950 Balance 1340 1170 Result Diagrams: 06/05/17 04:46 05/31/17 04:59 Additional Labs: Accuchecks 06/05/17 06/05/17 06/04/17 11:19 05:36 21:11 POC Glucose 215 H 192 H 230 H 06/04/17 15:53 POC Glucose 207 H Phys Exam - Physical Examination Constitutional: NAD HEENT: PERRLA, moist MMs, oral pharynx no lesions Neck: no JVD, supple, full ROM Respiratory: no wheezing, no rales, no rhonchi, clear to auscultation bilateral Cardiovascular: RRR, no significant murmur, no rub Gastrointestinal: soft, positive bowel sounds Musculoskeletal: no edema, pulses present Neurological: non-focal, normal sensation, moves all 4 limbs Lymphatic: no nodes Psychiatric: normal affect, A&O x 3 Skin: no rash, normal turgor, cap refill <2 seconds Dx/Plan (1) HTN (hypertension) Code(s): I10 - ESSENTIAL (PRIMARY) HYPERTENSION Status: Chronic Qualifiers: Hypertension type: essential hypertension Qualified Code(s): I10 - Essential (primary) hypertension Comment: pt states he had before, BP normal now, not on Rx. CCM and monitor (2) PUD (peptic ulcer disease) Code(s): K27.9 - PEPTIC ULC, SITE UNSP, UNSP AC OR CHR, W/O HEMOR OR PERF Status: Chronic Comment: massive bleed requiring surgical oversew in past. GI prophylaxis (3) DM2 (diabetes mellitus, type 2) Status: Chronic Qualifiers: Diabetes mellitus complication status: without complication Diabetes mellitus fdc insulin use: without fdc use Qualified Code(s): E11.9 - Type 2 diabetes mellitus without complications Comment: SSI ordered, pt refusing. noted. (4) Infection of prosthetic knee joint Code(s): T84.59XA - INFECT/INFLM REACTION DUE TO OTH INTERNAL JOINT PROSTH, INIT ; Z96.659 - PRESENCE OF UNSPECIFIED ARTIFICIAL KNEE JOINT Status: Acute Qualifiers: Encounter type: initial encounter Qualified Code(s): T84.59XA - Infection and inflammatory reaction due to other internal joint prosthesis, initial encounter; Z96.659 - Presence of unspecified artificial knee joint; Z96.659 - Presence of unspecified artificial knee joint Comment: s/p [address] Magana. Tissue cx, fluid cx, and swab cx sent, all positive for E faecium. [facility] sensitivites keep terminating due to lack of growth in the wells, attempting again today. On Vanc and Zyvox. may need to transition to Cubicin if we cannot get. Dr Allan following. (5) SEVEN (obstructive sleep apnea) Code(s): G47.33 - OBSTRUCTIVE SLEEP APNEA (ADULT) (PEDIATRIC) Status: Chronic Comment: home CPAP (6) Knee arthropathy Code(s): M12.9 - ARTHROPATHY, UNSPECIFIED Status: Acute - Plan cont current plan of care, continue antibiotics, PT/OT, out of bed/ambulate * .
[2017-06-05] MEDS: Tamsulosin HCl 0.4 MG CAP PO SCH (21:30)
[2017-06-05] MEDS: Rosuvastatin 20 MG TAB PO SCH (21:30)
[2017-06-05] MEDS: Oxybutynin 5 MG TAB PO SCH (21:30)
[2017-06-06] MEDS ORDERED: Vancomycin HCl 750 MG in Sodium Chloride 0.9% 250 ML 250 ML IVPB SCH (02:00)
[2017-06-06] MEDS: Dextrose 5 %-0.45 % NaCl 1,000 ML IV SCH ×2 (02:10→14:01)
[2017-06-06 05:53] LABS: Hemoglobin 11.8 g/dL (14.0-18.0); Mean Corpuscular HGB CONC 32.4 g/dL (32.0-36.0); Mean Corpuscular Hemoglobin 29.5 pg (27.0-31.0); Mean Corpuscular Volume 90.9 fl (80.0-94.0); Mean Platelet Volume 9.4 fL (7.4-10.4); Platelet Count 165 thou/uL (130-400); RBC Distribution Width 13.1 % (11.5-14.5); White Blood Cell (WBC) Count 10.9 thou/uL (4.8-10.8)
[2017-06-06] MEDS: Levothyroxine Sodium 75 MCG TAB PO SCH (06:34)
[2017-06-06] MEDS: HumaLOG 300 UNITS/3 ML VIAL SC PRN ×2 (06:35→12:15)
[2017-06-06 08:01] VITALS: TEMP 97.8
[2017-06-06] MEDS: Alogliptin 25 MG TAB PO SCH (09:15)
[2017-06-06] MEDS: Azelastine 137 MCG/Spray 30 ML NS SCH ×2 (09:15→09:28)
[2017-06-06] MEDS: Aspirin 81 mg Enteric Coated Tablet PO SCH (09:15)
[2017-06-06] MEDS: Finasteride 5 MG TAB PO SCH (09:16)
[2017-06-06] MEDS: Calcium Carbonate + Vit D 1 TAB PO SCH (09:16)
[2017-06-06] MEDS: Fluticasone Propionate Nasal Spray 16 gm Bottle NASAL SCH (09:16)
[2017-06-06] MEDS: Ferrous Gluconate 324 MG TAB PO SCH (09:16)
[2017-06-06] MEDS: Multivitamin W/ Minerals 1 TAB PO SCH (09:17)
[2017-06-06] MEDS: Senokot S 8.6-50 MG TAB PO SCH (09:17)
[2017-06-06] MEDS: Linezolid 600 MG in Premix Bag 1 BAG IVPB SCH (09:35)
[2017-06-06] MEDS ORDERED: DAPTOmycin 500 MG VIAL SLOW IVP SCH (10:45)
[2017-06-06] MEDS ORDERED: DAPTOmycin 1,000 MG in Sodium Chloride 0.9% 20 ML SLOW IVP SCH (12:00)
[2017-06-06 12:17] VITALS: BP 152/94
--- NOTE | 2017-06-06 12:55 | PDOC.PN ---
- Subjective Encounter Start Date: 06/06/17 Encounter Start Time: 10:30 Pt without event. walked from bed to chair with assistance. at the bedside. Discussed plan for pt to be discharged today. He then stated he had gone to [place] yesterday and thought it was run down, shaking her head no in the background. otherwise A&O X 3. Cx rejected by the [facility] again. i have requested the bug to be sent out to the reference lab for susceptibilities. Discussed the case with Dr Allan, we recommended discharging on Cubicin until this is back next week. arrangements mad,e orders written. Weekly labs ordered including CPK 10 point ROs performed and neg for all systems except as above - Objective MAR Reviewed: Yes Vital Signs & Weight: Vital Signs (12 hours) Temp Pulse Resp BP Pulse Ox 06/06/17 11:35 97.8 F 60 18 152/94 H 96 06/06/17 07:30 97.8 F 64 20 151/83 H 96 06/06/17 05:12 97.7 F 74 18 155/75 H 96 Weight Admit Weight 287 lb Weight 287 lb I&O: 06/05/17 06/06/17 06/07/17 06:59 06:59 06:59 Intake Total 2120 3030 Output Total 950 300 Balance 1170 2730 Result Diagrams: 06/06/17 04:32 05/31/17 04:59 Additional Labs: Accuchecks 06/06/17 06/06/17 06/05/17 11:38 04:32 21:10 POC Glucose 193 H 158 H 195 H 06/05/17 15:59 POC Glucose 193 H Phys Exam - Physical Examination Constitutional: NAD HEENT: PERRLA, moist MMs, sclera anicteric, oral pharynx no lesions Neck: no nodes, no JVD, supple, full ROM Respiratory: no wheezing, no rales, no rhonchi, clear to auscultation bilateral Cardiovascular: RRR, no significant murmur, no rub Gastrointestinal: soft, non-tender, no distention, positive bowel sounds Musculoskeletal: pulses present, edema present Neurological: non-focal, normal sensation, moves all 4 limbs Lymphatic: no nodes Psychiatric: normal affect, A&O x 3 Skin: no rash, normal turgor, cap refill <2 seconds Dx/Plan (1) HTN (hypertension) Code(s): I10 - ESSENTIAL (PRIMARY) HYPERTENSION Status: Chronic Qualifiers: Hypertension type: essential hypertension Qualified Code(s): I10 - Essential (primary) hypertension Comment: pt states he had before, BP normal now, not on Rx. CCM and monitor (2) PUD (peptic ulcer disease) Code(s): K27.9 - PEPTIC ULC, SITE UNSP, UNSP AC OR CHR, W/O HEMOR OR PERF Status: Chronic Comment: massive bleed requiring surgical oversew in past. GI prophylaxis (3) DM2 (diabetes mellitus, type 2) Status: Chronic Qualifiers: Diabetes mellitus complication status: without complication Diabetes mellitus correction insulin use: without correction use Qualified Code(s): E11.9 - Type 2 diabetes mellitus without complications Comment: SSI ordered, pt refusing. noted. (4) Infection of prosthetic knee joint Code(s): T84.59XA - INFECT/INFLM REACTION DUE TO OTH INTERNAL JOINT PROSTH, INIT ; Z96.659 - PRESENCE OF UNSPECIFIED ARTIFICIAL KNEE JOINT Status: Acute Qualifiers: Encounter type: initial encounter Qualified Code(s): T84.59XA - Infection and inflammatory reaction due to other internal joint prosthesis, initial encounter; Z96.659 - Presence of unspecified artificial knee joint; Z96.659 - Presence of unspecified artificial knee joint Comment: s/p [address] Magana. Tissue cx, fluid cx, and swab cx sent, all positive for E faecium. Vitek sensitivites keep terminating due to lack of growth in the wells, again today. Vancomycin is static for enterococcus , as is Zyvox. On Vanc and Zyvox currently. Change to cubicin at 1000mg q 24 hours, first dos here, that is just shy of 8mg/kg/24 hours..reference lab specimen sent sensitivities. Dr Allan to follow this up as an outpatient (5) SEVEN (obstructive sleep apnea) Code(s): G47.33 - OBSTRUCTIVE SLEEP APNEA (ADULT) (PEDIATRIC) Status: Chronic Comment: home CPAP (6) Knee arthropathy Code(s): M12.9 - ARTHROPATHY, UNSPECIFIED Status: Acute - Plan cont current plan of care, continue antibiotics, PT/OT, out of bed/ambulate * . to [facility] in [place] swing bed today, will sign off in anticipation of discharge
[2017-06-08 11:09] LABS: Ref Lab Test Ordered AEROBIC ID AND SENS; Reference Lab Name LABCORP
--- NOTE | 2017-06-17 09:18 | OP ---
DATE OF PROCEDURE: 07/07/2017 PREOPERATIVE DIAGNOSIS: Failed left total knee. POSTOPERATIVE DIAGNOSIS: Failed left total knee. PROCEDURE: Revision left total knee arthroplasty. SURGEON: Dimas Magana M.D. AUTOMATIC FABRIC CUTTER: Krzysztof Conn PA-C. BLOOD LOSS: Minimal. SPECIMEN: None. DRAINS: None. COMPLICATIONS: None. Cultures were obtained, deep tissue. PROCEDURE IN DETAIL: The patient was taken to the operating where general anesthesia was induced. L eft leg was prepped and draped in the usual sterile fashion. I opened up the old incision, it had a draining sinus in the knee. This was excised. I performed a complete synovectomy, had very thick ci catrix throughout the knee. Implants were removed carefully and cautiously with good preservation of bone stock. I performed revision total knee using the primary total knee implants. This was Stryke r Triathlon femur with a Chris Triathlon all poly tibia and the patella was not replaced. Antibiot ics were treated with gentamicin, and tobramycin. After irrigation performed implants were cemented into place. Additional irrigation was performed. The knee was closed with #1 Vicryl and #1 Quill fo r the deep layer, the subcu was closed with 2-0 Quill, skin was closed with 2-0 Prolene. Sterile juan ssing was applied. There were no complications.
== END 2017-06-06 14:18 | disposition swing bed (61) | DRG 468 ==
LOC: SURG A 05-30 06:24 → SJJU 05-30 13:54
PROVIDERS: ADMIT Orthopaedic Surgery; ATTEND Orthopaedic Surgery
PROC: 0SWD0JZ Revision of Synthetic Substitute in Left Knee Joint, Open Approach (ICD-10-PCS; 2017-05-30)
PROC: 0SBD0ZZ Excision of Left Knee Joint, Open Approach (ICD-10-PCS; 2017-05-30)
PROC: 0SHD08Z Insertion of Spacer into Left Knee Joint, Open Approach (ICD-10-PCS; 2017-05-30)
PROC: 02HV33Z Insertion of Infusion Device into Superior Vena Cava, Percutaneous Approach (ICD-10-PCS; principal; 2017-06-02)
PROC: 3E0T3BZ Introduction of Anesthetic Agent into Peripheral Nerves and Plexi, Percutaneous Approach (ICD-10-PCS; 2017-06-02)
DX: T84.54XA Infection and inflammatory reaction due to internal left knee prosthesis, initial encounter (principal); E11.618 Type 2 diabetes mellitus with other diabetic arthropathy; T84.093A Other mechanical complication of internal left knee prosthesis, initial encounter; K27.9 Peptic ulcer, site unspecified, unspecified as acute or chronic, without hemorrhage or perforation; I10 Essential (primary) hypertension; Z86.718 Personal history of other venous thrombosis and embolism; Z96.651 Presence of right artificial knee joint; Z95.0 Presence of cardiac pacemaker; I49.9 Cardiac arrhythmia, unspecified; K21.9 Gastro-esophageal reflux disease without esophagitis; N40.0 Benign prostatic hyperplasia without lower urinary tract symptoms; G47.33 Obstructive sleep apnea (adult) (pediatric); Z98.42 Cataract extraction status, left eye; Z98.41 Cataract extraction status, right eye; Z85.828 Personal history of other malignant neoplasm of skin; Z90.49 Acquired absence of other specified parts of digestive tract; E78.5 Hyperlipidemia, unspecified; S83.005A Unspecified dislocation of left patella, initial encounter
CPT/HCPCS: 36415; 36416; 36569; 71020; 80048; 80202; 81001; 82550; 83735; 85025; 85027; 85610; 85730; 86140; 86850; 86900; 86901; 87070; 87077; 87081; 87205; 88305; 89060; C1713; C1751; C1776; G8978-GP-CM; G8979-GP-CK; G8987-GO-CL; G8988-GO-CJ; J0171; J0670; J0696; J0878; J1100; J1170; J1644; J2020; J2250; J2405; J2543; J2704; J3010; J3260; J3370; J7050; S0020

== ENCOUNTER 2017-09-03 13:50 | Emergency (ER) | payer MEDICARE ==
[2017-09-03 14:58] LABS: #Basophils 0.1 thou/uL (0.0-0.2); #Eosinphils 0.6 thou/uL (0.0-0.7); #Lymphocytes 3.6 thou/uL (1.20-3.40); #Monocytes 1.3 thou/uL (0.11-0.59); #Neutrophils 7.1 thou/uL (1.40-6.50); %Basophils 0.5 % (0.0-1.0); %Eosinophils 4.9 % (0.0-10.0); %Lymphocytes 28.1 % (21.0-51.0); %Monocytes 10.6 % (0.0-10.0); %Neutrophils 55.8 % (42.0-75.0); Hemoglobin 12.6 g/dL (14.0-18.0); Mean Corpuscular HGB CONC 31.7 g/dL (32.0-36.0); Mean Corpuscular Hemoglobin 28.8 pg (27.0-31.0); Mean Corpuscular Volume 90.8 fl (80.0-94.0); Mean Platelet Volume 9.1 fL (7.4-10.4); Platelet Count 136 thou/uL (130-400); RBC Distribution Width 14.4 % (11.5-14.5); White Blood Cell (WBC) Count 12.6 thou/uL (4.8-10.8)
[2017-09-03 15:18] LABS: ALT (SGPT) 15 U/L (8-55); AST (SGOT) 22 U/L (5-34); Albumin 3.6 g/dL (3.4-4.8); Alkaline Phosphatase 112 U/L (40-150); Anion Gap 13 mmol/L (10-20); BUN (Urea Nitrogen) 30 mg/dL (8.4-25.7); Bilirubin, Total 0.5 mg/dL (0.2-1.2); Calc. Creatinine Clearance 0 mL/min (70-130); Calcium 9.1 mg/dL (7.8-10.44); Carbon Dioxide 19 mmol/L (23-31); Chloride 111 mmol/L (98-107); Estimated GFR-MDRD 55; Globulin 3.8 g/dL (2.4-3.5); Glucose 131 mg/dL (83-110); Lipase 95 U/L (8-78); Potassium 4.9 mmol/L (3.5-5.1); Protein, Total 7.4 g/dL (5.8-8.1); Sodium 138 mmol/L (136-145)
[2017-09-03] MEDS ORDERED: metroNIDAZOLE 250 MG TAB ONE (16:27)
== END 2017-09-03 16:39 | disposition home or self-care (01) ==
LOC: ERS 13:50
DX: K57.92 Diverticulitis of intestine, part unspecified, without perforation or abscess without bleeding (principal); E11.9 Type 2 diabetes mellitus without complications; E78.5 Hyperlipidemia, unspecified; I48.91 Unspecified atrial fibrillation; I10 Essential (primary) hypertension; Z86.711 Personal history of pulmonary embolism; Z86.718 Personal history of other venous thrombosis and embolism; Z79.82 Long term (current) use of aspirin; Z79.899 Other long term (current) drug therapy
CPT/HCPCS: 36415; 80053; 83690; 85025; 99284

== ENCOUNTER 2017-10-08 13:28 | Outpatient (CLI) | payer MEDICARE ==
--- NOTE | 2017-10-08 14:23 | RAD ---
PA AND LATERAL CHEST X-RAY: 10/08/2017 HISTORY: Dyspnea. COMPARISON: 07/15/2017 FINDINGS: Dual-lead left subclavian cardiac pacemaker device remains in place. The right-sided PICC line has b een removed. The cardiac silhouette is enlarged. The pulmonary vasculature is within normal limits. There is mild atelectasis at the left lung base. The lungs are otherwise clear. Vascular calcific ation can be seen in the thoracic aorta. There is right convex curvature of the thoracic spine with degenerative changes noted. IMPRESSION: 1. Mild cardiomegaly without overt congestive heart failure. 2. Bibasilar atelectasis. 3. No acute cardiopulmonary process. POS: CET
== END 2017-10-08 13:29 | disposition home or self-care (01) ==
LOC: RAD 13:28
PROVIDERS: ATTEND Internal Medicine Pulmonary Disease
DX: R06.00 Dyspnea, unspecified (principal); I51.7 Cardiomegaly; J98.11 Atelectasis
CPT/HCPCS: 71046

== ENCOUNTER 2018-01-10 19:08 | Emergency (ER) | payer MEDICARE ==
[2018-01-10 20:15] LABS: Bilirubin Negative (Negative); Blood, Urine Small (Negative); Clarity CLOUDY (Clear); Glucose, Urine (Dipstick) Negative (Negative); Leukocyte Large (Negative); Nitrite Negative (Negative); Protein, Urine (Dipstick) Negative (Neg-Trace); Specific Gravity, Urine 1.009 (1.002-1.036); Urobilinogen 0.2 mg/dL (0.2-1.0); pH, Urine 5.5 (5.0-9.0)
[2018-01-10 20:17] LABS: Bacteria/HPF None Seen HPF (None Seen); Hyaline Casts/LPF 0-3 HYALINE CAST LPF (0-3 Hyaline); Pathc Cast-AUWi Flag 0.14 (0-2.49); Squamous Epithelial None Seen HPF (0-3); Yeast-AUWi Flag 32.1 (0-25.0)
[2018-01-10 20:28] LABS: Yeast-All Forms 1+ HPF (None Seen)
[2018-01-10 20:38] LABS: #Eosinphils 0.8 thou/uL (0.0-0.7); #Lymphocytes 2.1 thou/uL (1.20-3.40); #Monocytes 1.1 thou/uL (0.11-0.59); #Neutrophils 5.8 thou/uL (1.40-6.50); %Basophils 0.3 % (0.0-1.0); %Eosinophils 7.9 % (0.0-10.0); %Neutrophils 59.7 % (42.0-75.0); Hemoglobin 12.7 g/dL (14.0-18.0); Mean Corpuscular HGB CONC 32.8 g/dL (32.0-36.0); Mean Corpuscular Volume 88.3 fL (78.0-98.0); Mean Platelet Volume 10.1 fL (7.4-10.4); Platelet Count 110 thou/uL (130-400); RBC Distribution Width 13.7 % (11.5-14.5); Red Blood Cell (RBC) Count 4.37 mill/uL (4.70-6.10); White Blood Cell (WBC) Count 9.7 thou/uL (4.8-10.8)
[2018-01-10 20:58] LABS: ALT (SGPT) 12 U/L (8-55); AST (SGOT) 22 U/L (5-34); Albumin 3.7 g/dL (3.4-4.8); Alkaline Phosphatase 107 U/L (40-150); Anion Gap 14 mmol/L (10-20); BUN (Urea Nitrogen) 29 mg/dL (8.4-25.7); Bilirubin, Total 0.5 mg/dL (0.2-1.2); Calc. Creatinine Clearance 0 mL/min (70-130); Calcium 8.8 mg/dL (7.8-10.44); Carbon Dioxide 21 mmol/L (23-31); Chloride 106 mmol/L (98-107); Estimated GFR-MDRD 53; Globulin 3.4 g/dL (2.4-3.5); Glucose 165 mg/dL (83-110); Potassium 4.4 mmol/L (3.5-5.1); Protein, Total 7.1 g/dL (5.8-8.1); Sodium 137 mmol/L (136-145)
[2018-01-10] MEDS ORDERED: cefTRIAXone\\ROCEPHIN 2 GM VIAL ONE (21:10)
[2018-01-10] MEDS ORDERED: Ibuprofen 200 MG TAB ONE (21:39)
[2018-01-10] MEDS ORDERED: Acetaminophen 500 MG TAB ONE (21:47)
[2018-01-10] MEDS ORDERED: Phenazopyridine HCl 97.5 MG TABLET PO SCH (22:00)
== END 2018-01-10 22:13 | disposition home or self-care (01) ==
LOC: ERS 19:08
DX: N39.0 Urinary tract infection, site not specified (principal); E11.9 Type 2 diabetes mellitus without complications; I10 Essential (primary) hypertension; I48.91 Unspecified atrial fibrillation; E78.5 Hyperlipidemia, unspecified; Z79.899 Other long term (current) drug therapy; Z79.82 Long term (current) use of aspirin
CPT/HCPCS: 80053; 81003; 81015; 83605; 85025; 87086; 96365; J0696

== ENCOUNTER 2018-03-26 14:59 | Outpatient (CLI) | payer MEDICARE ==
--- NOTE | 2018-03-26 17:03 | CT ---
CT PARANASAL SINUSES NONCONTRAST: 03/26/18 HISTORY: Chronic sinusitis. FINDINGS: Postoperative changes of the medial wall of each maxillary sinus with apparent antrectomies. Severe m ucosal thickening throughout all of the paranasal sinuses, nearly completely opacifying the ethmoid a ir cells and maxillary sinuses and greater than half of the sphenoid and frontal sinus volume capacit y. No air fluid levels are apparent. Ethmoid septae absence may be surgical or erosive. Nasal septum is intact. Calcification within the arterial structures. IMPRESSION: Severe paranasal espinoza sinusitis with postsurgical removal or erosion of the ethmoid infundibula and et hmoid septae. No air fluid levels are apparent. Atherosclerosis. POS: KIMMY
== END 2018-03-26 15:00 | disposition home or self-care (01) ==
LOC: BICCT 14:59
PROVIDERS: ATTEND Allergy & Immunology
DX: J32.9 Chronic sinusitis, unspecified (principal); Z98.890 Other specified postprocedural states

== ENCOUNTER 2019-04-26 08:12 | Day surgery (SDC) | payer MEDICARE ==
[2019-04-23 12:21] VITALS: BMI 34.9
[2019-04-26 09:12] LABS: INR-International Normal Ratio 1.1; Prothrombin Time 14.2 SEC (12.0-14.7)
[2019-04-26 09:13] LABS: PTT 33.4 SEC (22.9-36.1)
[2019-04-26 09:20] LABS: Anion Gap 12 mmol/L (10-20); BUN (Urea Nitrogen) 36 mg/dL (8.4-25.7); Calc. Creatinine Clearance 55 mL/min (70-130); Calcium 9.1 mg/dL (7.8-10.44); Carbon Dioxide 23 mmol/L (23-31); Chloride 109 mmol/L (98-107); Estimated GFR-MDRD 36; Glucose 105 mg/dL (83-110); Potassium 4.6 mmol/L (3.5-5.1); Sodium 139 mmol/L (136-145)
[2019-04-26] MEDS ORDERED: Iothalamate Meglumine 60% 50 ML VIAL FS ONE (09:34)
[2019-04-26] MEDS ORDERED: cefTRIAXone\\ROCEPHIN 2 GM VIAL ONE (09:35)
[2019-04-26] MEDS ORDERED: Sodium Chloride 0.9% 100 ML ONE (09:35)
[2019-04-26 09:48] LABS: #Eosinphils 0.6 thou/uL (0.0-0.7); #Lymphocytes 2.9 thou/uL (1.20-3.40); #Monocytes 0.8 thou/uL (0.11-0.59); #Neutrophils 4.9 thou/uL (1.40-6.50); %Basophils 0.5 % (0.0-1.0); %Eosinophils 6.4 % (0.0-10.0); %Lymphocytes 31.4 % (21.0-51.0); %Monocytes 8.8 % (0.0-10.0); Hemoglobin 12.6 g/dL (14.0-18.0); Mean Corpuscular HGB CONC 33.1 g/dL (32.0-36.0); Mean Corpuscular Hemoglobin 29.7 pg (27.0-31.0); Mean Corpuscular Volume 89.6 fL (78.0-98.0); Mean Platelet Volume 9.8 fL (7.4-10.4); Platelet Count 115 thou/uL (130-400); Platelet Morphology Comment Appears Decreased; RBC Distribution Width 13.6 % (11.5-14.5); RBC Morphology Normal; Red Blood Cell (RBC) Count 4.25 mill/uL (4.70-6.10); White Blood Cell (WBC) Count 9.3 thou/uL (4.8-10.8)
[2019-04-26] MEDS ORDERED: Fentanyl 100 MCG/2 ML VIAL ONE (09:48)
[2019-04-26] MEDS ORDERED: Lidocaine 1% PF 5 ML VIAL ONE (11:07)
[2019-04-26] MEDS ORDERED: PROPOFOL 200 MG/20 ML VIAL ONE (11:07)
[2019-04-26] MEDS ORDERED: Dexamethasone 20 MG/5 ML VIAL ONE (11:07)
[2019-04-26] MEDS ORDERED: Ondansetron PF 4 MG/2 ML Vial ONE (11:07)
--- NOTE | 2019-04-26 11:22 | RAD ---
Retrograde pyelogram: 04/26/2019 COMPARISON: None available HISTORY: Left-sided ureteral stent FINDINGS: Imaged 4 out of 11 demonstrates contrast media within the left ureter and left renal collec ting system. There is a questionable filling defect within the distal left ureter on image 4 of 11, which may represent a stone within the distal left ureter. Later imaging demonstrates placement of a double-J ureteral stent. There is mild irregularity of the distal left ureter on image 4 of 11 at the level of the pelvic inlet, incompletely assessed on this exam. IMPRESSION: Retrograde pyelogram as above.
--- NOTE | 2019-04-26 14:32 | OP ---
DATE OF PROCEDURE: 04/26/2019 PREOPERATIVE DIAGNOSES: 1. Left distal ureteral stones. 2. Recurrent urinary tract infections. POSTOPERATIVE DIAGNOSES: 1. Left distal ureteral stones. 2. Recurrent urinary tract infections. PROCEDURES PERFORMED: 1. Cystoscopy. 2. Left retrograde. 3. Left ureteroscopy. 4. Laser lithotripsy. 5. Stone retrieval. 6. Left stent placement. ANESTHETIC: General. ESTIMATED BLOOD LOSS: Minimal. FINDINGS: There were 2 left distal ureteral stones, broke up a number of small pieces, which were basketed out, dropped in about bladder, then Ellik'd out of the bladder and sent for stone analysis. Then, we placed a 6-Mozambican x 24 cm double-J stent with a string attached to it. DESCRIPTION OF PROCEDURE: Obtained written and verbal consent from the patient. After receiving IV antibiotics, he was taken to the operating suite. He was placed in a supine position on the treatment table. PlexiPulses were placed on his lower extremities and turned on. He was given a general anesthetic and oral obturator intubation. He was placed in the dorsal lithotomy position and was sterilely prepped and draped for cystoscopy. C-arm unit was brought in. Cystoscopy was performed with a 22-Mozambican sheath. This was passed, well lubricated under direct vision through the male urethra into the urinary bladder with aid of a 30-degree lens of video camera and monitor. There was no evidence of urethral strictures. 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 No stones in the bladder. No tumors. The bladder was filled and emptied number of times with the findings above. A 5-Mozambican Pollack catheter was flushed with contrast and brought in and placed in the left ureteral orifice. As we did fluoroscopy, we slowly injected about 12 mL of contrast filling up this ureter. There were 2 filling defects in the distal ureter. Nothing else abnormal. We fed a guidewire up the side, removed the instruments, brought in a small caliber rigid ureteroscope, passed under direct vision with aid of a video camera across the male urethra into the bladder and up the left ureter until the stones were visualized. We then brought in a small caliber holmium laser fiber, used this to break up the stones into numerous pieces and then used a Nitinol basket to remove these pieces and brought them into the bladder. Once this was completed, there was nothing but just dust left. We removed the ureteroscope, leaving the guidewire in place. We back-loaded the guidewire through the cystoscope and replaced that, placed a 5-Mozambican Pollack catheter up in the renal pelvis, removed the guidewire, injected about 10 mL to 15 mL of contrast, filling up the entire collecting system. There was no significant filling defect. There was no hydro. There was no extravasation of contrast. The guidewire was replaced. The open-ended catheter was removed. A stent was placed over the guidewire, pushed up in place with aid of a pusher, so its proximal end coiled in the renal pelvis and its distal end coiled in the bladder when the wire was removed. We then removed the scope, leaving the string attached to the stent and cut the string shorter and then replaced the scope and then used the siOPTICA evacuator to evacuate the stone fragments out of the bladder and sending them off for stone analysis. At this point, the patient was awakened, extubated, taken by stretcher to recovery room. Job ID: [id number]
[2019-04-26] MEDS ORDERED: Tamsulosin HCl 0.4 MG CAP ONE (14:39)
[2019-04-26] MEDS ORDERED: HYDROcodone/Acetaminophen 5/325 mg Tablet ONE (17:02)
[2019-04-26] MEDS ORDERED: Sodium Chloride 0.9% 10 ML ONE (18:05)
[2019-04-30 09:11] LABS: CA Oxalate Monohydrate 97 % (.); Color Brown (.); Stone Weight 90.5 mg (.)
== END 2019-04-26 18:45 | disposition home or self-care (01) ==
LOC: SDC 08:12
PROVIDERS: ATTEND Urology
PROC: 0TC78ZZ Extirpation of Matter from Left Ureter, Via Natural or Artificial Opening Endoscopic (ICD-10-PCS; principal; 2019-04-26)
PROC: 0T778DZ Dilation of Left Ureter with Intraluminal Device, Via Natural or Artificial Opening Endoscopic (ICD-10-PCS; 2019-04-26)
PROC: BT1F1ZZ Fluoroscopy of Left Kidney, Ureter and Bladder using Low Osmolar Contrast (ICD-10-PCS; 2019-04-26)
DX: N20.1 Calculus of ureter (principal); N39.0 Urinary tract infection, site not specified; E11.9 Type 2 diabetes mellitus without complications; B96.20 Unspecified Escherichia coli [E. coli] as the cause of diseases classified elsewhere; N40.0 Benign prostatic hyperplasia without lower urinary tract symptoms; N32.89 Other specified disorders of bladder; G47.30 Sleep apnea, unspecified; K21.9 Gastro-esophageal reflux disease without esophagitis; Z79.2 Long term (current) use of antibiotics; Z79.82 Long term (current) use of aspirin; Z79.84 Long term (current) use of oral hypoglycemic drugs; Z79.899 Other long term (current) drug therapy; Z87.440 Personal history of urinary (tract) infections
CPT/HCPCS: 51798; 52356; 74420; 80048; 82365; 85025; 85610; 85730; 88300; C1758; 36415; J0696; J1100; J2001; J2405; J2704; J3010; J3490

== ENCOUNTER 2019-07-01 19:30 | Outpatient (CLI) | payer MEDICARE | END 2019-07-01 19:31 | disposition home or self-care (01) | LOC: SLEEPLAB 19:30 | PROVIDERS: ATTEND Internal Medicine Pulmonary Disease | DX: G47.33 Obstructive sleep apnea (adult) (pediatric) (principal); E66.9 Obesity, unspecified; J44.9 Chronic obstructive pulmonary disease, unspecified; Z68.35 Body mass index [BMI] 35.0-35.9, adult; G47.31 Primary central sleep apnea | CPT/HCPCS: 95810 ==

== ENCOUNTER 2019-12-16 19:38 | Emergency (ER) | payer MEDICARE ==
--- NOTE | 2019-12-16 21:49 | RAD ---
XR Chest 1 View History: Shortness of breath Comparison: Radiograph 2018 Findings: Heart size is enlarged. There is pulmonary venous congestion. There is a 3-lead AICD/pacer. No acute osseous abnormality. Impression: Cardiomegaly and mild pulmonary venous congestion.
[2019-12-16 22:14] LABS: #Eosinphils 0.5 thou/uL (0.0-0.7); #Lymphocytes 2.7 thou/uL (1.20-3.40); #Monocytes 1.1 thou/uL (0.11-0.59); #Neutrophils 5.2 thou/uL (1.40-6.50); %Basophils 0.5 % (0.0-1.0); %Eosinophils 5.7 % (0.0-10.0); %Lymphocytes 28.4 % (21.0-51.0); %Neutrophils 54.5 % (42.0-75.0); Hemoglobin 12.9 g/dL (14.0-18.0); Mean Corpuscular HGB CONC 32.3 g/dL (32.0-36.0); Mean Corpuscular Hemoglobin 30.1 pg (27.0-31.0); Mean Corpuscular Volume 93.2 fL (78.0-98.0); Mean Platelet Volume 10.5 fL (7.4-10.4); Platelet Count 139 thou/uL (130-400); RBC Distribution Width 13.4 % (11.5-14.5); Red Blood Cell (RBC) Count 4.29 mill/uL (4.70-6.10); White Blood Cell (WBC) Count 9.6 thou/uL (4.8-10.8)
[2019-12-16 22:36] LABS: ALT (SGPT) 110 U/L (8-55); AST (SGOT) 76 U/L (5-34); Albumin 3.7 g/dL (3.4-4.8); Alkaline Phosphatase 226 U/L (40-110); Anion Gap 15 mmol/L (10-20); BUN (Urea Nitrogen) 40 mg/dL (8.4-25.7); Bilirubin, Total 0.5 mg/dL (0.2-1.2); CK (CPK) 44 U/L (30-200); Calc. Creatinine Clearance 0 mL/min (70-130); Calcium 9.2 mg/dL (7.8-10.44); Carbon Dioxide 27 mmol/L (23-31); Chloride 104 mmol/L (98-107); Estimated GFR-MDRD 43; Globulin 3.2 g/dL (2.4-3.5); Glucose 146 mg/dL (83-110); Potassium 4.7 mmol/L (3.5-5.1); Protein, Total 6.9 g/dL (5.8-8.1); Sodium 141 mmol/L (136-145)
[2019-12-16 22:51] LABS: CKMB 1.9 ng/mL (0-6.6)
== END 2019-12-16 23:07 | disposition home or self-care (01) ==
LOC: ERS 19:38
DX: R06.02 Shortness of breath (principal); R09.81 Nasal congestion; E11.9 Type 2 diabetes mellitus without complications; I10 Essential (primary) hypertension; Z79.899 Other long term (current) drug therapy
CPT/HCPCS: 36415; 71045; 80053; 82550; 82553; 83880; 84484; 85025; 93005

== ENCOUNTER 2019-12-30 19:00 | Outpatient (CLI) | payer MEDICARE | END 2019-12-30 19:01 | disposition home or self-care (01) | LOC: SLEEPLAB 19:00 | PROVIDERS: ATTEND Internal Medicine Pulmonary Disease | DX: G47.33 Obstructive sleep apnea (adult) (pediatric) (principal); E66.9 Obesity, unspecified; J44.9 Chronic obstructive pulmonary disease, unspecified | CPT/HCPCS: 95811 ==